=== PATIENT | female | born 1965 | race Caucasian/White ===

== ENCOUNTER → 2018-12-30 09:36 | Outpatient (CLI) | payer MEDICARE ==
[~2018-12-30 09:36] MED LIST: AMBIEN10 MG PO; BACLOFEN10 MG PO; CELEBREX200 MG PO; HYDROCODON-ACE1 EA10 PO; LATUDA40 MG PO; LISINOPRIL20 MG PO; NEURONTIN600 MG PO; VIIBRYD20 MG PO
--- NOTE | 2019-01-05 10:45 | ST ---
PATIENT:JAYA MARX MEDICAL RECORD: [id number] SEX: F LOCATION:[facility] ORDER #: ADMISSION DATE: 12/30/18 AGE OF PATIENT: 53 REFERRING PHYSICIAN: INTERPRETING PHYSICIAN: COLLEEN KIRAN MD DATE OF SERVICE: 12/30/2018 Nuclear Stress Test INDICATION: Angina, hypertension, smoker, family history of coronary artery disease. She was exercised on standard Lexiscan protocol with 33 mCi of sestamibi injected at peak stress, 10 mCi were used previously for rest images. FINDINGS: Gated SPECT reveals preserved ejection fraction at 70% with good wall motioning and thickening and brightening throughout all segments. SPECT imaging Cardiolite was used as myocardial perfusion agent. There are reversible changes anteriorly and laterally. This includes the basal, mid apical anterior segments as well as apical lateral, mid lateral, and basal lateral segments. The reversibility is mild to moderate. The amount of myocardium involved was moderate. OVERALL IMPRESSION: This is an abnormal nuclear stress test reversibility anteriorly and laterally, possibly suggesting multivessel coronary artery disease. We will proceed with coronary angiography as followup study. TRANSINT:[id number] Voice Confirmation ID: [id number] DOCUMENT ID: [id number] COLLEEN KIRAN MD at 1045 CC: [id number] DICTATION DATE: 01/01/19 0858 MATERIALS ENGINEERING TECHNICIAN: 01/01/19 2335 [facility] CLI 12/30/[address] [address]
[2019-01-18 12:35] VITALS: BMI 41.1
== END | disposition home or self-care (01) ==
LOC: D.HCCARDIO 09:30
DX: I20.9 Angina pectoris, unspecified (principal)

== ENCOUNTER 2019-01-18 11:56 | Outpatient (CLI) | payer MEDICARE ==
[~2019-01-18] VITALS: Ht 162.6 cm; Wt 108.6 kg
--- NOTE | ~2019-01-18 | HEMODYNAMI ---
PATIENT:JAYA MARX MEDICAL RECORD: [id number] : 69 LOCATION:[facility] ADMISSION DATE: 01/18/19 Generatedon:01/18/201914:54 Patient name: JAYA MARX Patient #: [id number] SSN: : 1965 Date of study: 01/18/2019 Page: Of Hemodynamic Procedure Report Patient Data Patient Demographics Procedure consent was obtained First Name: JAYA Gender: Female Last Name: FRANCISCO J : 1965 [facility] Initial: L Age: 53 year(s) Patient #: [id number] Race: Unknown Additional ID: [id number] Contact details Address: [address] [place] [address] [facility] State: [place] City: [facility] Zip code: [address] Past Medical History Allergies: No known allergies Admission Admission Data Admission Date: 01/18/2019 Admission Time: 11:56 Lab Results Lab Result Date: 01/18/2019 Lab Result Time: 0:00 Biochemistry Name Units Result Min Max BUN mg/dl 14 --(--*-)-- 7 18 Creatinine mg/dl 0.8 --(-*--)-- 0.6 1.3 CBC Name Units Result Min Max Hemoglobin g/dl 14.4 --(*---)-- 13.5 17.5 Procedure Procedure Types Cath Procedure Diagnostic Procedure LHC LHC w/Coronaries Procedure Description Procedure Date Procedure Date: 01/18/2019 Procedure Start Time: 14:36 Procedure End Time: 14:54 Procedure Staff Name Function Kvng Clark MD Performing Physician Ana Bah RT Monitor Domenica Julian RT Scrub Zaira Isbell RT Scrub Kalie Tripp RN Nurse Procedure Data Cath Procedure Fluoroscopy Diagnostic fluoroscopy Total fluoroscopy Time: 2.3 time: 2.3 min min Diagnostic fluoroscopy Total fluoroscopy dose: 795 dose: 795 mGy mGy Contrast Material Contrast Material Type Amount (ml) Isovue 300 53 Entry Location Entry Primary Successful Side Size Upsize Upsize Entry Closure Ríos ccessful Closure Location (Fr) 1 (Fr) 2 (Fr) Remarks Device Remarks Radial Right 6 Fr Mechanical artery Short Compression Estimated blood loss: 10 ml Diagnostic catheters Device Type Used For End Catheter Placement DIAGNOSTIC [place] 110cm 5 Procedure Fr catheter ([id number]) DIAGNOSTIC Pigtail 5Fr Ventriculography catheter ([id number]) Procedure Complications No complications Procedure Medications Medication Administration Route Dosage 0.9% NaCl I.V. 100 ml/hr Oxygen etCO2 Nasal cannula 2 l/min Lidocaine 2% added to field 20 Heparin Flush Bag added to field 2 bags (1000units/500ml NS) Radial Cocktail added to field 1 syringe (Verapomil 2mg/Nitro 400mcg/Heparin 1500units) Versed I.V. 2 mg Fentanyl I.V. 50 mcg Versed I.V. 2 mg Fentanyl I.V. 50 mcg Hemodynamics Rest HGB: 14.4 (g/dl) Heart Rate: 54 (bpm) Pressure Samples Time Site Value (mmHg) Purpose Heart Use Rate(bpm) 14:45 LV 114/11,16 EDP 80 14:45 AO 136/62(80) Pullback 77 14:45 LV 115/21,28 Pullback 77 Gradients Valve Time Site 1 Site 2 Mean SEP/DFP Peak To Heart Use (mmHg) (sec/min) Peak Rate (mmHg) (bpm) Aortic 14:45 LV AO 0 11 0 77 115/21,28 136/62(80) Calculations Valve P-P Mean Valve Index Valve Source Name Gradient Area Flow (cm2) Aortic 0 0 0 0 Snapshots Pre Cath Intra NCS Post Cath Vital Signs Time Heart Resp SPO2 etCO2 NIBP (mmHg) Rhythm Pain Sedation Rate (ipm) (%) (mmHg) Status Level (bpm) 14:20:57 62 17 99 37 133/66(114) NSR 0 (11) 10(A) , No pain 14:25:09 62 14 99 35.6 119/64(100) NSR 0 (11) 10(A) , No pain 14:29:21 70 15 96 35.6 115/60(85) NSR 0 (11) 10(A) , No pain 14:33:35 70 18 97 15.9 105/51(96) NSR 0 (11) 10(A) , No pain 14:37:45 75 18 98 35.6 95/53(76) NSR 0 (11) 10(A) , No pain 14:41:51 76 15 98 36.3 108/53(78) NSR 0 (11) 10(A) , No pain 14:46:00 77 18 99 37.9 107/54(76) NSR 0 (11) 10(A) , No pain 14:50:08 74 22 96 36.3 112/58(79) NSR 0 (11) 10(A) , No pain 14:54:16 95 35.5 110/66(84) NSR 0 (11) 10(A) , No pain Medications Time Medication Route Dose Verified Delivered Reason Notes E ffectiveness by by 14:22:45 0.9% NaCl I.V. 100 Kvng Kalie used for ml/hr Amber Qasim procedure MD MALDONADO 14:22:53 Oxygen etCO2 2 l/min Kvng Kalie used for Nasal Amber Qasim procedure cannula MD MALDONADO 14:22:58 Lidocaine 2% added 20ml Kvng Calderon for local to vial Amber Amber anesthetic field MD LYNN 14:23:04 Heparin Flush added 2 bags Kvng Calderon used for Bag to Amber Amber procedure (1000units/500ml field MD LYNN NS) 14:23:11 Radial Cocktail added 1 Kvng Kvng used for (Verapomil to syringe Amber Amber procedure 2mg/Nitro field MD LYNN 400mcg/Heparin 1500units) 14:36:06 Versed I.V. 2 mg Kvng Kalie for AmberThomas Tripp sedation MD MALDONADO 14:36:11 Fentanyl I.V. 50 mcg Knvg Owensyla for AmberThomas Tripp sedation MD MALDONADO 14:41:01 Versed I.V. 2 mg Kvng Kalie for Amber Qasim sedation MD MALDONADO 14:41:09 Fentanyl I.V. 50 mcg Kvng Kalie for Amber Qasim sedation MD MALDONADOmarketing business analyst Log Time Note 14:06:24 Diagnostic Cath status Elective 14:06:25 Ana CARTER(R) sent for patient. Start room use. 14:06:26 Time tracking: Regular hours (M-F 7:00 - 5:00) 14:06:31 Plan of Care:Hemodynamics will remain stable., Cardiac rhythm will remain stable., Comfort level will be maintained., Respiratory function will remain adequate., Patient/ family verbilizes understanding of procedure., Procedure tolerated without complication., Recovers from procedure without complications.. 14:14:44 Patient received from Pre/Post Procedure Room to [facility] 2 Alert and oriented. Tansferred to table in Supine position. 14:14:46 Warm blankets applied, and george hugger turned on for patient comfort. 14:14:46 Correct patient and procedure confirmed by team. 14:14:47 Signed procedure consent form obtained from patient. 14:14:49 ECG and BP/O2 sat monitors applied to patient. 14:19:52 Vital chart was started 14:19:55 Baseline sample Acquired. 14:20:05 Rhythm: sinus rhythm 14:20:07 Full Disclosure recording started 14:20:28 H&P Date Dictated: 12/30/2018 Within 30 days and on chart., H&P Addendum completed by physician on day of procedure. (MUST COMPLETE FOR ALL OUTPATIENTS). 14:20:32 Pre-procedure instructions explained to patient. 14:20:35 Family in waiting room. 14:20:37 Patient NPO since Midnight. 14:20:46 Patient allergic to No known allergies 14:20:51 Is the patient allergic to Iodine/contrast media? No. 14:20:54 Was the patient premedicated? Yes 14:20:56 Is patient on blood thinner?No 14:20:57 Patient diabetic? No. 14:21:01 Snore? Yes 14:21:02 Sleep apnea? Yes 14:21:07 Dentures? No ? 14:21:15 Patient pain scale 0/10 ?. 14:21:20 IV patent on arrival in left forearm with 0.9% NaCl at [facility]. 14:22:45 0.9% NaCl 100 ml/hr I.V. was administered by Kalie Tripp RN; used for procedure; 14:22:53 Oxygen 2 l/min etCO2 Nasal cannula was administered by Kalie Tripp RN; used for procedure; 14:22:58 Lidocaine 2% 20ml vial added to field was administered by Kvng Clark MD; for local anesthetic; 14:23:04 Heparin Flush Bag (1000units/500ml NS) 2 bags added to field was administered by Kvng Clark MD; used for procedure; 14:23:11 Radial Cocktail (Verapomil 2mg/Nitro 400mcg/Heparin 1500units) 1 syringe added to field was administered by Kvng Clark MD; used for procedure; 14:: Lab Result : BUN 14 mg/dl 14:: Lab Result : Creatinine 0.8 mg/dl 14:: Lab Result : Hemoglobin 14.4 g/dl 14:27:33 Lab results completed and on chart. 14:27:36 Right Radial & Right Groin area was prepped with chlora-prep and draped in sterile fashion 14::37 Alarms reviewed by R. N. 14:27:38 Sharps counted by scrub and verified by R.N. 14:27:40 Physician paged 14:29:10 Pre procedure: right posterior tibial pulse 2+ Normal; easily identifiable; not easily obliterated 14:29:25 Use device set Radial Dx or PCI 14:29:27 ACIST Syringe (30442) opened to sterile field. 14:29:28 Medline Cath Pack ([id number]) opened to sterile field. 14:29:28 Bag Decanter (2002S) opened to sterile field. 14:29:29 DIAGNOSTIC WIRE .035 260cm J wire (157933) opened to sterile field. 14:29:29 ACIST Hand Control (21763) opened to sterile field. 14:29:30 ACIST Manifold (84917) opened to sterile field. 14:29:30 Tegaderm 4 x 4 (1626W) opened to sterile field. 14:29:31 MBrace Wrist Support ([id number]) opened to sterile field. 14:29:35 SHEATH 6FR Slender (801060) opened to sterile field. 14:35:45 Physician arrived 14:35:46 --------ALL STOP TIME OUT------ 14:35:46 Final Timeout: patient, procedure, and site verified with staff and physician. All members of the team are in agreement. 14:35:48 Right Radial & Right Groin site verified by team. 14:35:53 Fire Safety Assessment: A--An alcohol-based skin anteseptic being used preoperatively., C--Open oxygen or nitrous oxide is being used., D--An ESU, laser, or fiber-optic light is being used. 14:35:59 Sedation plan: IV Moderate Sedation Medication:Versed, Fentanyl 14:36:03 Procedure started. 14:36:06 Versed 2 mg I.V. was administered by Kalie Tripp RN; for sedation; 14:36:11 Fentanyl 50 mcg I.V. was administered by Kalie Tripp RN; for sedation; 14:36:22 Local anesthetic to right radial artery with Lidocaine 2% by Kvng Clark MD.INITIAL ACCESS ONLY 14:36:35 A 6 Fr Short sheath was inserted into the Right Radial artery 14:37:45 A DIAGNOSTIC [place] 110cm 5 Fr catheter ([id number]) was advanced over the wire and used for Procedure. 14:38:24 Zero performed for pressure channel P1 14:38:27 Zero performed for pressure channel P1 14:39:49 RCA angiography performed. 14:40:42 LCA angiography performed. 14:41:01 Versed 2 mg I.V. was administered by Kalie Tripp RN; for sedation; 14:41:09 Fentanyl 50 mcg I.V. was administered by Kalie Tripp RN; for sedation; 14:41:51 Catheter removed. 14:42:10 A DIAGNOSTIC Pigtail 5Fr catheter ([id number]) was advanced over the wire and used for Ventriculography. 14:45:17 Catheter removed. 14:45:27 EF : 55 % 14:45:43 Sheath removed intact; hemostasis achieved with Mechanical Compression to the Right Radial artery. 14:46:08 Procedure ended.(Physican Out) 14:48:30 Fluoroscopy time 02.30 minutes. 14:48:36 Fluoroscopy dose: 795 mGy 14:48:36 Flurop Dose total: 795 14:48:49 Contrast amount:Isovue 300 53ml. 14:48:50 Sharps counted by scrub and verified by R.N. 14:52:01 TR band inflated with 14cc of air. 14:52:36 TR BAND Standard ([id number]) opened to sterile field. 14:52:39 Insertion/operative site no bleeding no hematoma. 14:52:45 Post Procedure Pulses reassessed and unchanged 14:52:54 Post-procedure physical assessment completed. ASA score P 2 - A patient with mild systemic disease as per Kvng Clark MD. 14:52:59 Post procedure rhythm: unchanged. 14:53:05 Estimated blood loss: 10 ml 14:53:07 Post procedure instruction explained to patient.Patient verbalizes understanding. 14:53:20 Procedure and supply charges have been captured, reviewed, submitted and are correct. 14:53:41 Procedure Complication : No complications 14:53:44 Vital chart was stopped 14:54:07 See physician's report for complete and final results. 14:54:13 Report given to Pre/Post Procedure Room. 14:54:16 Patient transfered to Pre/Post Procedure Room with Stretcher. 14:54:19 Procedure ended. 14:54:19 Full Disclosure recording stopped 14:54:22 End room use (Document Last) Device Usage Item Name Manufacture Quantity Catalog Hospital Part Current Minimal Lot# / Number Charge Number Stock Stock Serial# Code ACIST Acist 1 15223 334893 905107 [id number] 20 Syringe Medical (26907) Systems Inc Medline Medline 1 [id number] 641230 48626 943670 5 Cath Pack ([id number]) Bag Microtek 1 2001S 906462 45960 372698 5 Decanter Medical Inc. (2001S) DIAGNOSTIC [facility] [place] 1 291317 127955 672963 676899 30 WIRE .035 260cm J wire (708608) ACIST Hand Acist 1 67712 444585 628193 554699 5 Control Medical (23233) Systems Inc ACIST Acist 1 69413 417438 980588 199829 5 Manifold Medical (12745) Systems Inc Tegaderm 4 3M 1 1626W 950273 670218 954101 5 x 4 (1626W) MBrace Advanced 1 140-0250-00 159776 76895 956158 5 Wrist Vascular Support Dynamics (221958121) SHEATH 6FR Terumo 1 [id number] 457544 158585 731151 5 Slender (80-1060) DIAGNOSTIC Terumo 1 40-4613 942259 529512 787973 5 [place] 110cm 5 Fr catheter (389887) DIAGNOSTIC Cardinal 1 [id number] 857168 409706 916631 5 Pigtail 5Fr Health catheter (069545S) TR BAND Terumo 1 [id number] 363975 390973 477682 40 Standard ([id number]) Signature Audit [place] Stage Time Signature Unsigned Intra-Procedure 01/18/2019 Ana Bah 2:54:46 PM RT(R) Signatures Monitor : Ana Bah Signature : RT Date : Time : [facility] [address] [place] [address]
[2019-01-18] MEDS ORDERED: NEURONTIN600 MG PO (12:07)
[2019-01-18] MEDS ORDERED: LISINOPRIL20 MG PO (12:07)
[2019-01-18] MEDS ORDERED: LATUDA40 MG PO (12:08)
[2019-01-18] MEDS ORDERED: CELEBREX200 MG PO (12:08)
[2019-01-18] MEDS ORDERED: HYDROCODON-ACE1 EA10 PO (12:09)
[2019-01-18] MEDS ORDERED: AMBIEN10 MG PO (12:10)
[2019-01-18] MEDS ORDERED: BACLOFEN10 MG PO (12:11)
[2019-01-18] MEDS ORDERED: VIIBRYD20 MG PO (12:11)
[2019-01-18 12:35] VITALS: BP 139/62; Ht 162.6 cm; Wt 108.6 kg
[2019-01-18 12:39] LABS: BASOPHILS 0.3 % (0-2); EOSINOPHILS 1.1 % (0-7); HEMATOCRIT 41.2 % (36.0-48.0); HEMOGLOBIN 14.4 g/dL (12-16); IMMATURE GRANULOCYTES 0.3 % (0-5); LYMPHOCYTES 22.4 % (15-50); MCH 32.4 pg (26.0-34.0); MCV 92.6 fL (80.0-100.0); MEAN PLATELET VOLUME 10.1 fL (7.4-10.4); MONOCYTES 6.6 % (2-11); NEUTROPHILS 69.3 % (40-80); PLATELET COUNT 251 10x3/uL (130-400); RBC 4.45 10x6/uL (4.00-5.40); RDW 12.5 % (11.5-14.5); WBC 10.7 10x3/uL (4.8-10.8)
[2019-01-18 12:47] LABS: CALC OSMOLALITY 284 mosm/kg (275-300); CALCIUM 8.8 mg/dL (8.5-10.1); CARBON DIOXIDE 26.1 mmol/L (21.0-32.0); CHLORIDE - SERUM 106 mmol/L (98-107); CREATININE - SERUM 0.8 mg/dL (0.6-1.3); GLUCOSE 87 mg/dL (74-106); POTASSIUM - SERUM 3.8 mmol/L (3.5-5.1); SODIUM 143 mmol/L (136-145); UREA NITROGEN 14 mg/dL (7-18); eGFR NON AFRICAN AMERICAN 80 mL/min (90-120)
--- NOTE | 2019-01-19 14:51 | OP ---
PATIENT NAME: JAYA MARX MEDICAL RECORD: [id number] :69 LOCATION:[facility] ADMISSION DATE: SURGEON: DESI VINSON MD DATE OF OPERATION: 01/18/2019 PROCEDURE: Left heart catheterization, selective coronary angiography, right radial approach. CATHETERS: Radial sheath, Lund catheter, pigtail. The procedure was well tolerated. The patient was returned to the vines. Sheath was removed. TR band was placed. FINDINGS: Left ventriculography in 30-degree VALVERDE view: Normal wall motion. Normal systolic function. CORONARY ANATOMY: LEFT MAIN: Left main is free of disease. LAD: Free of disease in the diagonal system. CIRCUMFLEX: Free of disease in the marginal system. RIGHT CORONARY ARTERY: Dominant artery, gives rise to PDA, free of disease. IMPRESSION: Normal systolic function. Normal coronary anatomy. TRANSINT:[id number] Voice Confirmation ID: [id number] DOCUMENT ID: [id number] DESI VINSON MD at 1451 CC: [id number] DICTATION DATE: 01/18/19 1451 ADVISER SALES: 01/18/19 1650 DEP CLI 01/18/19 [facility] [address] [place] [id number]
== END 2019-01-18 17:25 | disposition home or self-care (01) ==
LOC: D.CATH 11:56
PROVIDERS: Internal Medicine Interventional Cardiology
DX: R94.30 Abnormal result of cardiovascular function study, unspecified (principal); Z01.812 Encounter for preprocedural laboratory examination

== ENCOUNTER 2019-11-08 19:00 | Outpatient (CLI) | payer MEDICARE ==
[2019-01-18 12:35] VITALS: BMI 41.1
== END 2019-11-08 23:59 | disposition home or self-care (01) ==
LOC: D.MAMMO 19:00
PROVIDERS: ATTEND Nurse Practitioner Family
DX: N63.13 Unspecified lump in the right breast, lower outer quadrant (principal)

== ENCOUNTER 2020-08-26 17:38 | Emergency (ER) | payer OTHER ==
[~2020-08-26] VITALS: Ht 162.6 cm; Wt 113.4 kg
[2020-08-26 17:55] VITALS: Ht 162.6 cm; Wt 113.4 kg
[2020-08-26] MEDS ORDERED: VOLTAREN75 MG PO (22:03)
[2020-08-26] MEDS ORDERED: NORFLEX100 MG PO (22:03)
[2020-08-26 22:21] VITALS: BP 132/88
== END 2020-08-26 22:24 | disposition home or self-care (01) ==
LOC: D.ER 17:38
DX: R51.9 Headache, unspecified (principal); M79.18 Myalgia, other site; M54.9 Dorsalgia, unspecified; V89.2XXA Person injured in unspecified motor-vehicle accident, traffic, initial encounter; I10 Essential (primary) hypertension